=== PATIENT | female | born 1945 | race Caucasian/White ===

== ENCOUNTER 2023-05-23 11:01 | Emergency (ER) | payer MEDICARE, SELFPAY ==
--- NOTE | 2023-05-23 11:19 | ECG_ITS ---
Test Reason : WEAKNESS Blood Pressure : / mmHG Vent. Rate : 075 BPM Atrial Rate : 000 BPM P-R Int : 000 ms QRS Dur : 072 ms QT Int : 382 ms P-R-T Axes : 000 -06 -05 degrees QTc Int : 426 ms Poor data quality, interpretation may be adversely affected Normal sinus rhythm Low voltage QRS Inferior infarct , age undetermined Abnormal ECG No previous ECGs available Referred By: Dania Abreu Electronically Signed By:MARCELINO DANIELS
[2023-05-23 11:20] VITALS: BP 113/53; BP 136/45; PULSE 67; PULSE 74; RESP 18; TEMP 36.8; O2SAT 98; O2SAT 99; BMI 26.2
--- NOTE | 2023-05-23 11:20 | ED_ITS ---
HPI - General Adult General Chief complaint: General Medical Stated complaint: LOW BLOOD SUGAR Time Seen by Provider: 05/23/23 11:04 Source: patient and EMS Mode of arrival: EMS Limitations: no limitations History of Present Illness HPI narrative: 77-year-old female with a history of diabetes on insulin and metformin, HTN who presents to the ER for evaluation of altered mental status. Patient was at a friend's house when she suddenly started becoming less responsive. Over the course of 20 minutes she became unresponsive but was breathing on her own. 911 was called and she was found have a glucose of 32. A 20 gauge IV was placed in her left arm and 25 g of dextrose was administered to the patient in route. Glucose initially improved to 188 and then went back down to 87. Patient states she did not eat anything yet today. She cannot say why. She took her medications as directed, cannot say if she perhaps took too much insulin. She does not know the dose with the name. MD complaint: Encephalopathy due to Hypoglycemia Onset (ago): minute(s) Severity: severe Relieving factors: other (Glucose) Associated symptoms: confusion, loss of appetite, malaise and weakness Treatments prior to arrival: other (D10) Related Data Previous Rx's Medication Instructions Recorded cefuroxime axetil 250 mg tablet 250 mg PO BID 7 days #14 tabs 05/23/23 Allergies Allergy/AdvReac Type Severity Reaction Status Date / Time tetanus and diphtheria Allergy Intermediate Unknown Verified 05/23/23 12:15 toxoids Review of Systems 2 Review of Systems: Yes all other systems are reviewed and are negative [facility] Past Medical History Medical History (Updated 05/23/23 @ 14:16 by LEO Kelley) HLD (hyperlipidemia) HTN (hypertension) Diabetes type I Social History Social History Smoked in Last 30 Days: No Use of substances other than those prescribed or required for medical reasons: No Advance Directives: No Advance Directives Information Provided: Yes Physical Exam ED Vital Signs: Vital Signs - 24 hr 05/23/23 11:20 05/23/23 11:55 05/23/23 14:10 Temperature 98.3 F 97.9 F Pulse Rate 67 68 88 Respiratory Rate 18 16 16 Blood Pressure 136/45 L 135/45 L 129/66 Pulse Oximetry 98 99 Oxygen Delivery Method Room Air Room Air Room Air BMI result Body Mass Index 26.2 Appearance: Alert. Oriented X3. No acute distress. Head: normocephalic, atraumatic. Eyes: Pupils equal, round and reactive to light. ENT: Pharynx normal. No tonsillar swelling or exudate. Neck: Normal inspection. Neck supple. CVS: Normal heart rate and rhythm. Pulses normal. Respiratory: No respiratory distress. Breath sounds normal. Abdomen: Soft and nontender. +BS x4 Skin: Skin warm and dry. Normal skin color. Normal skin turgor. No rashes. Extremities: No lower extremity edema. No joint swelling. Neuro/psych: Oriented X 3. No motor deficit. No sensory deficit. CN II-XII intact. Normal speech and cognition. Course Reevaluation(s) Reevaluation #1: Patient given orange juice and a full ham sandwich on arrival to the ER. She was awake and alert. Shortly after she became less arousable and her glucose was noted to drop into the 40s. An amp of D50 was given and D10 ordered. Mental status slowly improved. Time: 11:45 Reevaluation #2: Patient's glucose only 91 after eating another full sandwich, Jell-O, and juice. She is walking around the ER and wants to go home. Her is here and would like to take her home. Patient and family were counseled on concerns of recurrent hypoglycemia and need for close monitoring, potential admission. Able to climb. They were counseled on risks of recurrent hypoglycemia, encephalopathy, seizures, coma, . The expressed understanding and all questions were answered. Recommended q.1 hour fingersticks at home with adequate oral intake. Advised to call 911 if she wears symptomatic again. Patient will follow-up with her primary care doctor who manages her diabetes. Time: 14:14 Medications Administered Generic Name Dose Route Start Last Admin Trade Name Freq PRN Reason Stop Dose Admin Dextrose 1,000 mls @ 50 mls/hr 05/23/23 11:45 05/23/23 14:12 D10 IVCONT Not Given .Q20H STEPHEN Discontinued Medications Generic Name Dose Route Start Last Admin Trade Name Freq PRN Reason Stop Dose Admin Dextrose 25 gm 05/23/23 11:41 05/23/23 11:47 Dextrose 50 % 25 Gm/50 Ml Syringe IVPUSH 05/23/23 11:42 25 gm ONCE ONE Administration Medical Decision Making Medical Decision Making MDM Narrative: 69-year-old female presenting to the ER for evaluation of altered mental status in the setting of severe hypoglycemia. Glucose in the 30s after not eating today. Patient developed recurrent hypoglycemia down into the 40s with altered mental status while in the ER after drinking orange juice and having a ham sandwich. An amp of D50 was given and D 10 W was started at 50 cc an hour. Patient's IV fell out and she was unable to get the D10. Her sugar initially improved to 185 after the amp of D50 but slowly trended back down to 91, even after eating another sandwich. Patient and family would like to leave against medical advice. They have been counseled extensively about recurrent hypoglycemia and the health risks. Advised to stay for admission and observation however they refused. Differential Diagnosis Differential Diagnoses: The differential diagnosis associated with the presentation includes Recurrent hypoglycemia due to acute infection, NH, poor p.o. intake, overdose of exogenous insulin or oral hyperglycemia agents Admission/Observation Consideration of admission/observation: Escalation of care including admission/observation considered Lab Data [facility] Lab Attestation statement: I reviewed the patient's lab results. 05/23/23 12:26 05/23/23 12:26 Labs: Lab Results 05/23/23 05/23/23 05/23/23 Range/Units 11:40 12:23 12:26 WBC 9.4 (4.8-10.8) X10*3/uL RBC 4.02 L (4.20-5.50) X10*6/uL Hgb 12.1 (12.0-16.0) g/dl Hct 36.2 L (37.0-47.0) % MCV 90.0 (80.0-98.0) fL MCH 30.1 (27.0-33.0) pg MCHC 33.4 (31.0-35.0) g/dl RDW 12.3 (11.0-16.0) % Plt Count 255 (160-400) X10*3/uL MPV 9.5 (9.4-12.3) fL Immature Gran % (Auto) 0.6 H (0.0-0.4) % Neut % (Auto) 79.0 H (45-73) % Lymph % (Auto) 10.9 L (20-40) % [place] % (Auto) 8.5 (2-11) % Eos % (Auto) 0.7 (0-4) % Baso % (Auto) 0.3 (0-2) % Lymph # (Auto) 1.0 L (1.2-4.9) X10*3/uL [place] # (Auto) 0.8 (0.1-1.2) X10*3/uL Eos # (Auto) 0.1 (0.0-0.4) X10*3/uL Baso # (Auto) 0.0 (0.0-0.2) X10*3/uL Abs Immat Gran (auto) 0.06 H (0.00-0.03) X10*3/uL Absolute Neuts (auto) 7.4 (2.0-8.3) x10*3/uL Absolute Nucleated RBC 0.000 (0.0-0.012) X10*3/uL Nucleated RBC % (auto) 0.0 (0.0-0.2) /100WBC Sodium 134 L (135-145) mmol/L Potassium 5.2 H (3.3-5.1) mmol/L Chloride 103 (96-108) mmol/L Carbon Dioxide 23 (22-29) mmol/L Anion Gap 13 (12-20) BUN 37 H (9-16) mg/dL Creatinine 1.11 (0.5-1.4) mg/dL Estim Creat Clear Calc 42.8 Estimated GFR 48 POC Glucose 44 L* 185 H (60-115) mg/dL Random Glucose 134 H (60-115) mg/dL Calcium 9.0 (8.4-10.2) mg/dL Magnesium 1.9 (1.6-2.6) mg/dL Total Bilirubin 0.2 (0.0-1.0) mg/dL Direct Bilirubin < 0.2 (0.0-0.5) mg/dL AST 26 (5-31) U/L ALT 18 (0-31) U/L Alkaline Phosphatase 70 (39-117) U/L Total Protein 6.8 (6.5-8.0) g/dL Albumin 3.4 L (3.5-5.0) g/dL Urine Color Urine Appearance Urine pH (5.0-9.0) Ur Specific Gibson (1.005-1.025) Urine Protein (Neg-Trace) mg/dL Urine Glucose (UA) (Negative) mg/dL Urine Ketones (Negative) mg/dL Urine Blood (Negative) Urine Nitrite (Negative) Ur Leukocyte Esterase (Negative) Urine RBC (0-2) /HPF Urine WBC (0-5) /HPF Ur Squamous Epith Cells (0-2) /HPF Urine Bacteria (None Seen) Hyaline Casts (0-2) /LPF 05/23/23 05/23/23 05/23/23 Range/Units 13:05 13:18 14:07 WBC (4.8-10.8) X10*3/uL RBC (4.20-5.50) X10*6/uL Hgb (12.0-16.0) g/dl Hct (37.0-47.0) % MCV (80.0-98.0) fL MCH (27.0-33.0) pg MCHC (31.0-35.0) g/dl RDW (11.0-16.0) % Plt Count (160-400) X10*3/uL MPV (9.4-12.3) fL Immature Gran % (Auto) (0.0-0.4) % Neut % (Auto) (45-73) % Lymph % (Auto) (20-40) % [place] % (Auto) (2-11) % Eos % (Auto) (0-4) % Baso % (Auto) (0-2) % Lymph # (Auto) (1.2-4.9) X10*3/uL [place] # (Auto) (0.1-1.2) X10*3/uL Eos # (Auto) (0.0-0.4) X10*3/uL Baso # (Auto) (0.0-0.2) X10*3/uL Abs Immat Gran (auto) (0.00-0.03) X10*3/uL Absolute Neuts (auto) (2.0-8.3) x10*3/uL Absolute Nucleated RBC (0.0-0.012) X10*3/uL Nucleated RBC % (auto) (0.0-0.2) /100WBC Sodium (135-145) mmol/L Potassium (3.3-5.1) mmol/L Chloride (96-108) mmol/L Carbon Dioxide (22-29) mmol/L Anion Gap (12-20) BUN (9-16) mg/dL Creatinine (0.5-1.4) mg/dL Estim Creat Clear Calc Estimated GFR POC Glucose 117 H 91 (60-115) mg/dL Random Glucose (60-115) mg/dL Calcium (8.4-10.2) mg/dL Magnesium (1.6-2.6) mg/dL Total Bilirubin (0.0-1.0) mg/dL Direct Bilirubin (0.0-0.5) mg/dL AST (5-31) U/L ALT (0-31) U/L Alkaline Phosphatase (39-117) U/L Total Protein (6.5-8.0) g/dL Albumin (3.5-5.0) g/dL Urine Color Yellow Urine Appearance Clear Urine pH 6.0 (5.0-9.0) Ur Specific Gibson 1.015 (1.005-1.025) Urine Protein Negative (Neg-Trace) mg/dL Urine Glucose (UA) Negative (Negative) mg/dL Urine Ketones Negative (Negative) mg/dL Urine Blood Negative (Negative) Urine Nitrite Negative (Negative) Ur Leukocyte Esterase Moderate (2+) H (Negative) Urine RBC 0-2 (0-2) /HPF Urine WBC 21-50 H (0-5) /HPF Ur Squamous Epith Cells 3-5 (0-2) /HPF Urine Bacteria 4+ (None Seen) Hyaline Casts 0-2 (0-2) /LPF Independent Interpretation I performed an independent interpretation of an: EKG Interpretation: EKG with normal sinus rhythm, ventricular rate 75 beats per minute, mild artifact present, no ST segment elevations or depressions. Isolated T-wave inversion in lead 3 only Independent Historian Clinical information obtained from an independent historian. History obtained from or confirmed by: Spouse and EMS Prescription Management I considered prescription management with: Other (D10) Chronic Conditions Patient?s care impacted by: Diabetes Critical Care Time Critical Care Time Critical Care Time: Yes Total Critical Care Time: 41 Attestation: I have personally provided critical care time exclusive of time spent on separately billable procedures. Time includes review of lab data, frequent bedside re-evaluation of mental status, discussion with consultants, and monitoring for potential decompensation. Intervention performed as documented. Discharge Plan Discharge Clinical Impression: Hypoglycemia, Acute encephalopathy, Acute UTI Patient Disposition: Left Against Medical Advice Instructions: Hypoglycemia in a Person with Diabetes (ED), Urinary Tract Infection in Older Adults (ED) Additional Instructions: Take the prescribed antibiotics as directed, complete the entire course and do not miss any doses. You have a UTI It was recommended that he stay in the hospital for glucose monitoring. It is important that you closely monitor blood sugar today, recommend once per hour when you get home. Recommend not giving your short-acting insulin today. If you feel lightheaded, dizzy, confused, sweaty or nauseous, check her sugar right away and drink something high in sugar like orange juice or Coca-Cola. Recommend giving only half dose of the long-acting insulin tonight. If you develop new or worsening symptoms call 911 or come back to the ER for further evaluation. Prescriptions: New cefuroxime axetil 250 mg tablet 250 mg PO BID 7 Days Qty: 14 0RF Stand Alone Forms: Against Medical Advice
--- NOTE | 2023-05-23 11:45 | PC.NURSE ---
poc 43 [facility] edmondson notified dizzy reports feels chilly no sweating noted talking confused
[2023-05-23] MEDS: Dextrose 50 % 25 GM/50 ML SYRINGE IVPUSH (11:47)
[2023-05-23 11:55] VITALS: BP 135/45; PULSE 68; RESP 16
[2023-05-23 12:27] LABS: Glucose, Whole Blood 185 mg/dL (60-115)
[2023-05-23 12:27] LABS: Glucose, Whole Blood 44 mg/dL (60-115)
[2023-05-23 12:30] LABS: MANUAL DIFF FLAG NO
[2023-05-23 12:37] LABS: Basophils Percent Auto 0.3 % (0-2); Eosinophils Absolute Auto 0.1 X10*3/uL (0.0-0.4); Eosinophils Percent Auto 0.7 % (0-4); Hematocrit 36.2 % (37.0-47.0); Hemoglobin 12.1 g/dl (12.0-16.0); Imm Gran Abs Auto 0.06 X10*3/uL (0.00-0.03); Imm Gran Pct Auto 0.6 % (0.0-0.4); Lymphocytes Percent Auto 10.9 % (20-40); Mean Corpuscular HGB Conc 33.4 g/dl (31.0-35.0); Mean Corpuscular Hemoglobin 30.1 pg (27.0-33.0); Mean Platelet Volume 9.5 fL (9.4-12.3); Monocytes Absolute Auto 0.8 X10*3/uL (0.1-1.2); Monocytes Percent Auto 8.5 % (2-11); Neutrophils Absolute Auto 7.4 x10*3/uL (2.0-8.3); Platelet Count 255 X10*3/uL (160-400); Red Blood Count 4.02 X10*6/uL (4.20-5.50); Red Cell Distribution Width 12.3 % (11.0-16.0); White Blood Count 9.4 X10*3/uL (4.8-10.8)
[2023-05-23 12:50] LABS: Alanine Aminotransferase 18 U/L (0-31); Albumin Level 3.4 g/dL (3.5-5.0); Alkaline Phosphatase 70 U/L (39-117); Anion Gap 13 (12-20); Aspartate Amino Transferase 26 U/L (5-31); Bilirubin Direct < 0.2 mg/dL (0.0-0.5); Bilirubin Total 0.2 mg/dL (0.0-1.0); Blood Urea Nitrogen 37 mg/dL (9-16); Carbon Dioxide 23 mmol/L (22-29); Chloride 103 mmol/L (96-108); Creatinine Clr Calc Pharmacy 42.8; Estimated Glomerular Filt Rate 48; Glucose Random 134 mg/dL (60-115); Magnesium 1.9 mg/dL (1.6-2.6); Potassium 5.2 mmol/L (3.3-5.1); Sodium 134 mmol/L (135-145); Total Protein 6.8 g/dL (6.5-8.0)
[2023-05-23 13:09] LABS: Glucose, Whole Blood 117 mg/dL (60-115)
[2023-05-23 13:29] LABS: Appearance Urine Clear; Color Urine Yellow; Glucose Urine UA Negative (Negative); Leukocyte Esterase Urine Moderate (2+) (Negative); Nitrite Urine Negative (Negative); Specific Gravity - Urine 1.015 (1.005-1.025); UMIC TRIGGER UACC YES; Urine Blood Negative (Negative); Urine Ketones Negative (Negative); Urine Protein Negative (Neg-Trace)
[2023-05-23 13:32] LABS: Bacteria Urine 4+ (None Seen); Hyaline Casts Urine 0-2 /LPF (0-2); RBC Urine 0-2 /HPF (0-2); UACC Culture Trigger YES; WBC Urine 21-50 /HPF (0-5)
--- NOTE | 2023-05-23 13:51 | MHC.EDTECH ---
Patient stated I'm bleeding and t/w noticed her IV came out. T/w helped Pt get cleaned up, applied gauze and bandage to arm, given a new hospital gown and sheet. LEO Najera walked in as this happened and she is aware IV fell out and stated to try and give Pt food. Pt given turkey sandwich, pudding and gingerale.
[2023-05-23 14:10] VITALS: BP 129/66; PULSE 88; RESP 16; TEMP 36.6; O2SAT 99
[2023-05-23 14:11] LABS: Glucose, Whole Blood 91 mg/dL (60-115)
[2023-05-23 14:24] VITALS: BP 129/66; PULSE 68; RESP 18; O2SAT 98
--- NOTE | 2023-05-23 14:26 | PC.NURSE ---
LEFT AMA- SIGNED FORM W AT BEDSIDE- PA JUSTIN Barrow AWARE- EDUCATED MULTIPLE TIMES ABOUT RISKS AND RECOMMENDATIONS BY rn/pa. aox4 at this time. calm, cooperative. PIV removed. w pt. poc in 80s- PA aware- pt had something to eat prior to this POC. +CSM. +VS
== END 2023-05-23 14:26 | disposition left against medical advice (07) ==
PROVIDERS: Physician Assistant; Emergency Provider Emergency Medicine
DX: G93.40 Encephalopathy, unspecified (principal); R94.31 Abnormal electrocardiogram [ECG] [EKG]; E16.2 Hypoglycemia, unspecified; N39.0 Urinary tract infection, site not specified; Z79.899 Other long term (current) drug therapy; Z79.4 Long term (current) use of insulin
CPT/HCPCS: 36415; 80048; 80076; 81001; 82947; 83735; 85025; 87086; 93005; 96374; 99284